=== PATIENT | female | born 1980 | race Hispanic/Latino ===

== ENCOUNTER 2017-04-10 20:12 | Emergency (ER) | payer MEDICAID ==
[2017-04-10 21:09] LABS: APPEARANCE,URINE Clear (CLEAR); BILIRUBIN,URINE Negative (NEGATIVE); COLOR,URINE Yellow (YELLOW); GLUCOSE, URINE (UA) Negative (NEGATIVE); KETONES,URINE Negative (NEGATIVE); LEUKOCYTE ESTERASE ,URINE Trace (NEGATIVE); NITRATE,URINE Negative (NEGATIVE); OCCULT BLOOD,URINE Moderate (NEGATIVE); PH,URINE 5.5 (5.0-8.0); PROTEIN,URINE Negative (NEGATIVE)
[2017-04-10 21:15] LABS: HCG,QUAL RESULT NEGATIVE (NEGATIVE)
[2017-04-10 21:25] LABS: BACTERIA,URINE Rare /HPF (None Seen); MUCUS,URINE Rare LPF (None Seen); SQUAMOUS EPITHELIAL CELL,UR Few /LPF (0-2)
[2017-04-10 21:28] LABS: BASOPHILS % (AUTO) 0.4 % (0.0-5.0); EOSINOPHILS % (AUTO) 2.7 % (0.0-8.0); HEMATOCRIT 38.3 % (36-48); LYMPHOCYTES % (AUTO) 28.6 % (21.0-51.0); MEAN CORPUSCULAR HEMOGLOBIN 30.2 pg (27.0-33.0); MEAN CORPUSCULAR HGB CONC 34.9 g/dL (32.0-36.0); MEAN CORPUSCULAR VOLUME 86.3 fL (79-99); MONOCYTES % (AUTO) 4.9 % (3.0-13.0); NEUTROPHILS % (AUTO) 63.4 % (40.0-77.0); NUCLEATED RED BLOOD CELLS 0.1 % (0.0-0.19); PLATELET COUNT (AUTO) 305 K/uL (130-400); RED BLOOD CELL COUNT(AUTO) 4.44 MIL/uL (4.00-5.50); RED CELL DISTRIBUTION WIDTH 14.1 % (11.0-15.5); WHITE BLOOD COUNT (AUTO) 6.8 K/uL (4.8-10.8)
[2017-04-10 21:42] LABS: INR 0.93 (0.85-1.15); PARTIAL THROMBOPLASTIN TIME 27.1 SEC (26.3-35.5); PROTHROMBIN TIME 9.8 SEC (9.6-11.6)
[2017-04-10] MEDS ORDERED: SUMATRIPTAN SUCCINATE 6 MG/VIAL 1ML SQ ONE (22:15)
[2017-04-11] MEDS ORDERED: KETOROLAC TROMETHAMINE 30MG/ML ONE (00:02)
[2017-04-11] MEDS ORDERED: METOCLOPRAMIDE 10 MG/2 ML VIAL ONE (00:02)
[2017-04-11] MEDS ORDERED: SODIUM CHLORIDE 0.9% 1000ML 1,000 ML IV ONE (00:03)
[2017-04-11] MEDS ORDERED: DiphenhydrAMINE HCL 50 MG/ML VIAL ONE (00:04)
[2017-04-11] MEDS ORDERED: ONDANSETRON HCL 4 MG/2 ML VIAL ONE (00:05)
== END 2017-04-11 01:07 | disposition home or self-care (01) ==
LOC: EDH 20:12
DX: G43.909 Migraine, unspecified, not intractable, without status migrainosus (principal); R20.0 Anesthesia of skin; R53.1 Weakness; F32.9 Major depressive disorder, single episode, unspecified; M79.7 Fibromyalgia; Z98.51 Tubal ligation status
CPT/HCPCS: 36415; 70450; 81001; 81025; 82948 ×2; 85025; 85610; 85730; 93005; 96361; 96372; 96374; 96375; 99285; J1200; J1885; J2405; J2765; J3030; J7030

== ENCOUNTER 2017-12-14 18:49 | Emergency (ER) | payer MEDICAID ==
[2017-12-14] MEDS ORDERED: DEXAMETHASONE SOD PHOSPHATE 10MG/ML 1ML VIAL ONE (19:15)
[2017-12-14] MEDS ORDERED: IPRATROPIUM/ALBUTEROL SULFATE 3 ML SOLUTION IH ONE (19:19)
[2017-12-14 19:35] LABS: RAPID GROUP A STREP NEGATIVE (NEGATIVE)
[2017-12-14] MEDS ORDERED: BENZONATATE 100 MG CAPSULE PO ONE (20:04)
== END 2017-12-14 20:10 | disposition home or self-care (01) ==
LOC: EDH 18:49
DX: J20.9 Acute bronchitis, unspecified (principal); J01.10 Acute frontal sinusitis, unspecified
CPT/HCPCS: 87804 ×2; 87880; 94640; 96372; 99284; J1100

== ENCOUNTER 2018-06-26 10:24 | Emergency (ER) | payer MEDICAID ==
[2018-06-26] MEDS ORDERED: ACETAMINOPHEN EXTRA STRENGTH 500 MG TABLET ONE (10:38)
[2018-06-26] MEDS ORDERED: IPRATROPIUM/ALBUTEROL SULFATE 3 ML SOLUTION IH ONE (10:45)
[2018-06-26 10:59] LABS: APPEARANCE,URINE Clear (CLEAR); BILIRUBIN,URINE Negative (NEGATIVE); COLOR,URINE Yellow (YELLOW); GLUCOSE, URINE (UA) Negative (NEGATIVE); KETONES,URINE Negative (NEGATIVE); LEUKOCYTE ESTERASE ,URINE Trace (NEGATIVE); NITRATE,URINE Negative (NEGATIVE); OCCULT BLOOD,URINE Small (NEGATIVE); PROTEIN,URINE Negative (NEGATIVE); UROBILINOGEN,URINE 0.2 mg/dL (0.2-1.0)
[2018-06-26 11:00] LABS: RAPID GROUP A STREP NEGATIVE (NEGATIVE)
[2018-06-26 11:03] LABS: HCG,QUAL RESULT NEGATIVE (NEGATIVE)
[2018-06-26 11:22] LABS: RBC,URINE 0-1 /HPF (0-1)
[2018-06-26 11:23] LABS: BACTERIA,URINE Rare /HPF (None Seen); WBC,URINE 0-1 /HPF (0-1)
== END 2018-06-26 12:27 | disposition home or self-care (01) ==
LOC: EDH 10:24
DX: J09.X2 Influenza due to identified novel influenza A virus with other respiratory manifestations (principal); F41.9 Anxiety disorder, unspecified; F32.9 Major depressive disorder, single episode, unspecified; J45.909 Unspecified asthma, uncomplicated
CPT/HCPCS: 81001; 81025; 87804; 87880; 94640

== ENCOUNTER 2018-12-02 08:52 | Emergency (ER) | payer MEDICAID ==
[2018-12-02] MEDS ORDERED: DiphenhydrAMINE HCL 50 MG/ML VIAL ONE (09:17)
[2018-12-02] MEDS ORDERED: DEXAMETHASONE SOD PHOSPHATE 10MG/ML 1ML VIAL ONE (09:17)
[2018-12-02] MEDS ORDERED: PROCHLORPERAZINE EDISYLATE 10 MG/2 ML VIAL ONE (09:17)
[2018-12-02] MEDS ORDERED: SODIUM CHLORIDE 0.9% 1000ML 1,000 ML IV ONE (09:18)
[2018-12-02 09:35] LABS: BASOPHILS % (AUTO) 0.8 % (0.0-5.0); HEMATOCRIT 42.1 % (36-48); LYMPHOCYTES % (AUTO) 28.5 % (21.0-51.0); MEAN CORPUSCULAR HEMOGLOBIN 29.9 pg (27.0-33.0); MEAN CORPUSCULAR VOLUME 87.9 fL (79-99); MONOCYTES % (AUTO) 5.6 % (3.0-13.0); NEUTROPHILS % (AUTO) 63.1 % (40.0-77.0); PLATELET COUNT (AUTO) 255 K/uL (130-400); RED BLOOD CELL COUNT(AUTO) 4.79 MIL/uL (4.00-5.50); RED CELL DISTRIBUTION WIDTH 14.8 % (11.0-15.5); WHITE BLOOD COUNT (AUTO) 6.6 K/uL (4.8-10.8)
[2018-12-02 09:42] LABS: CREATININE 0.7 mg/dL (0.5-1.5); POTASSIUM 4.1 mmol/L (3.5-5.1)
[2018-12-02 09:50] LABS: ALBUMIN 3.4 g/dL (3.5-5.0); BILIRUBIN,TOTAL 0.3 mg/dL (0.2-1.0); CARBAMAZEPINE (TEGRETOL) 4.8 mcg/mL (4.0-12.0); TOTAL PROTEIN, SERUM 7.3 g/dL (6.0-8.3)
== END 2018-12-02 12:59 | disposition home or self-care (01) ==
LOC: EDH 08:52
DX: G43.909 Migraine, unspecified, not intractable, without status migrainosus (principal); R11.2 Nausea with vomiting, unspecified; F32.9 Major depressive disorder, single episode, unspecified; J45.909 Unspecified asthma, uncomplicated; F41.9 Anxiety disorder, unspecified
CPT/HCPCS: 36415; 80053; 80156; 85025; 96361; 96374; 96375; 99284; J0780; J1100; J1200; J7030

== ENCOUNTER 2019-02-14 16:04 | Emergency (ER) | payer MEDICAID ==
[2019-02-14] MEDS ORDERED: ALBUTEROL SULFATE 0.083% 2.5 MG/3 ML INH IH ONE (16:56)
[2019-02-14 16:58] LABS: BASOPHILS % (AUTO) 0.7 % (0.0-5.0); EOSINOPHILS % (AUTO) 5.2 % (0.0-8.0); HEMATOCRIT 39.2 % (36-48); LYMPHOCYTES % (AUTO) 37.3 % (21.0-51.0); MEAN CORPUSCULAR HEMOGLOBIN 29.7 pg (27.0-33.0); MEAN CORPUSCULAR HGB CONC 34.3 g/dL (32.0-36.0); MEAN CORPUSCULAR VOLUME 86.7 fL (79-99); MONOCYTES % (AUTO) 8.2 % (3.0-13.0); NEUTROPHILS % (AUTO) 48.6 % (40.0-77.0); PLATELET COUNT (AUTO) 262 K/uL (130-400); RED BLOOD CELL COUNT(AUTO) 4.52 MIL/uL (4.00-5.50); RED CELL DISTRIBUTION WIDTH 14.1 % (11.0-15.5); WHITE BLOOD COUNT (AUTO) 5.7 K/uL (4.8-10.8)
[2019-02-14 17:10] LABS: INR 0.92 (0.85-1.15); PARTIAL THROMBOPLASTIN TIME 25.4 SEC (26.3-35.5); PROTHROMBIN TIME 9.7 SEC (9.6-11.6)
[2019-02-14 17:19] LABS: CREATININE 0.6 mg/dL (0.5-1.5); POTASSIUM 4.9 mmol/L (3.5-5.1)
[2019-02-14 17:25] LABS: ALBUMIN 3.5 g/dL (3.5-5.0); BILIRUBIN,TOTAL 0.3 mg/dL (0.2-1.0); TOTAL PROTEIN, SERUM 6.9 g/dL (6.0-8.3)
[2019-02-14 17:26] LABS: APPEARANCE,URINE Clear (CLEAR); BILIRUBIN,URINE Negative (NEGATIVE); COLOR,URINE Yellow (YELLOW); GLUCOSE, URINE (UA) Negative (NEGATIVE); KETONES,URINE Negative (NEGATIVE); LEUKOCYTE ESTERASE ,URINE Negative (NEGATIVE); NITRATE,URINE Negative (NEGATIVE); OCCULT BLOOD,URINE Negative (NEGATIVE); PH,URINE 7.5 (5.0-8.0); PROTEIN,URINE Negative (NEGATIVE)
[2019-02-14 17:28] LABS: HCG,QUAL RESULT NEGATIVE (NEGATIVE)
[2019-02-14 17:34] LABS: AMPHET/METH SCREEN,URINE NEGATIVE (NEGATIVE); BARBITURATE SCREEN, URINE NEGATIVE (NEGATIVE); BENZODIAZEPINES SCREEN,URINE NEGATIVE (NEGATIVE); CANNABINOID SCREEN,URINE NEGATIVE (NEGATIVE); COCAINE SCREEN,URINE NEGATIVE (NEGATIVE); OPIATE SCREEN,URINE NEGATIVE (NEGATIVE); PHENCYCLIDINE SCREEN,URINE NEGATIVE (NEGATIVE)
[2019-02-14] MEDS ORDERED: METHYLPREDNISOLONE SOD SUCC 125MG/2ML VIAL ONE (17:47)
== END 2019-02-14 18:07 | disposition home or self-care (01) ==
LOC: EDH 16:04
DX: J45.21 Mild intermittent asthma with (acute) exacerbation (principal); F41.9 Anxiety disorder, unspecified; F32.9 Major depressive disorder, single episode, unspecified; Z98.51 Tubal ligation status
CPT/HCPCS: 36415; 71045; 80053; 80305; 81003; 81025; 82550; 84484; 85025; 85610; 85730; 87804 ×2; 93005; 94640; 96374; 99285; J2930

== ENCOUNTER 2020-01-29 18:45 | Emergency (ER) | payer MEDICAID | END 2020-01-29 19:57 | disposition home or self-care (01) | LOC: EDH 18:45 | DX: T81.31XA Disruption of external operation (surgical) wound, not elsewhere classified, initial encounter (principal); J45.909 Unspecified asthma, uncomplicated; F41.9 Anxiety disorder, unspecified; M79.7 Fibromyalgia; Z98.890 Other specified postprocedural states; Z98.84 Bariatric surgery status; Z98.51 Tubal ligation status; Y83.8 Other surgical procedures as the cause of abnormal reaction of the patient, or of later complication, without mention of misadventure at the time of the procedure ==

== ENCOUNTER 2021-04-13 21:11 | Emergency (ER) | payer MEDICAID ==
[~2021-04-13] VITALS: Ht 160 cm; Wt 63.0 kg
[2021-04-13] MEDS ORDERED: DEXAMETHASONE SOD PHOSPHATE 4 MG/ML 1ML VIAL IM ONE (22:00)
[2021-04-13] MEDS ORDERED: BENZ-39 PO (22:13)
[2021-04-13] MEDS ORDERED: FLUT16H NASAL (22:13)
[2021-04-13] MEDS ORDERED: LORA10TA7 PO (22:13)
[2021-04-13 22:19] VITALS: BP 125/73
== END 2021-04-13 22:38 | disposition home or self-care (01) ==
LOC: EDH 21:11
DX: B34.9 Viral infection, unspecified (principal); E78.00 Pure hypercholesterolemia, unspecified; J44.9 Chronic obstructive pulmonary disease, unspecified; K21.9 Gastro-esophageal reflux disease without esophagitis; M19.90 Unspecified osteoarthritis, unspecified site; F41.9 Anxiety disorder, unspecified; G43.909 Migraine, unspecified, not intractable, without status migrainosus
CPT/HCPCS: 81025; 96372; 99283; J1100

== ENCOUNTER 2022-10-24 19:33 | Observation (INO) | payer MEDICAID ==
[~2022-10-24] VITALS: Ht 160 cm; Wt 73.1 kg
[~2022-10-24 19:33] MED LIST: BENZ-39 PO; FLUT16H NASAL; LORA10TA7 PO
[2022-10-24] MEDS ORDERED: ONDANSETRON 4MG INJ ONE (22:05)
[2022-10-24] MEDS ORDERED: 0.9%NACL 1000ML 1,000 ML IV ONE ×2 (22:05→22:30)
[2022-10-24 22:25] LABS: BASOPHILS # (AUTO) 0.02 K/uL (0.00-0.20); BASOPHILS % (AUTO) 0.2 % (0.0-5.0); EOSINOPHILS # (AUTO) 0.03 K/uL (0.00-0.70); EOSINOPHILS % (AUTO) 0.3 % (0.0-8.0); HEMATOCRIT 41.4 % (36-48); IMMATURE GRANULOCYTE ABSOLUTE 0.03 K/uL (0-1); LYMPHOCYTES # (AUTO) 1.2 K/uL (1.0-4.8); LYMPHOCYTES % (AUTO) 12.2 % (21.0-51.0); MEAN CORPUSCULAR HEMOGLOBIN 29.9 pg (27.0-33.0); MEAN CORPUSCULAR HGB CONC 34.5 g/dL (32.0-36.0); MEAN CORPUSCULAR VOLUME 86.6 fL (79-99); MONOCYTES # (AUTO) 0.5 K/uL (0.1-1.0); MONOCYTES % (AUTO) 5.5 % (3.0-13.0); NEUTROPHILS # (AUTO) 7.7 K/uL (1.8-7.7); NEUTROPHILS % (AUTO) 81.5 % (40.0-77.0); PLATELET COUNT (AUTO) 265 K/uL (130-400); RED BLOOD CELL COUNT(AUTO) 4.78 MIL/uL (4.00-5.50); RED CELL DISTRIBUTION WIDTH 11.9 % (11.0-15.5); WHITE BLOOD COUNT (AUTO) 9.5 K/uL (4.8-10.8)
[2022-10-24] MEDS ORDERED: MORPHINE 4 MG SYG IVP ONE (22:30)
[2022-10-24] MEDS ORDERED: ONDANSETRON 4MG INJ IVP ONE (22:30)
[2022-10-24 22:39] LABS: APPEARANCE,URINE CLEAR (CLEAR); BILIRUBIN,URINE 0.5 mg/dL (NEGATIVE); COLOR,URINE YELLOW (YELLOW); GLUCOSE, URINE (UA) NEGATIVE (NEGATIVE); KETONES,URINE 5 mg/dL (NEGATIVE); LEUKOCYTE ESTERASE ,URINE 25 Leu/uL (NEGATIVE); NITRATE,URINE NEGATIVE (NEGATIVE); PH,URINE 5.5 (5.0-8.0); PROTEIN,URINE 30 mg/dL (NEGATIVE)
[2022-10-24 22:43] LABS: CREATININE 0.8 mg/dL (0.5-1.5); POTASSIUM 3.7 mmol/L (3.5-5.1)
[2022-10-24 22:46] LABS: ADD UA MICROSCOPIC YES
[2022-10-24 22:47] LABS: BACTERIA,URINE RARE /HPF (None Seen); BILIRUBIN,TOTAL 0.9 mg/dL (0.2-1.0); MUCUS,URINE MOD LPF (None Seen); SQUAMOUS EPITHELIAL CELL,UR RARE /HPF (0-2); TOTAL PROTEIN, SERUM 7.4 g/dL (6.0-8.3)
[2022-10-25] MEDS ORDERED: ACETAMINOPHEN 325 MG TAB PO PRN ×2 (00:30)
[2022-10-25] MEDS ORDERED: POTASSIUM CHLORIDE 20MEQ/100ML 100 ML IV PRN (00:30)
[2022-10-25] MEDS ORDERED: MORPHINE 4 MG SYG IV PRN (00:30)
[2022-10-25] MEDS: LACTATED RINGERS 1000ML 1,000 ML IV SCH ×2 (03:00→13:50)
[2022-10-25 03:28] LABS: SARS-CoV-2, RNA, NAAT NEGATIVE SARS CoV-2 (NEGATIVE)
[2022-10-25 06:38] LABS: BASOPHILS # (AUTO) 0.01 K/uL (0.00-0.20); BASOPHILS % (AUTO) 0.2 % (0.0-5.0); EOSINOPHILS # (AUTO) 0.07 K/uL (0.00-0.70); EOSINOPHILS % (AUTO) 1.5 % (0.0-8.0); HEMATOCRIT 38.1 % (36-48); IMMATURE GRANULOCYTE ABSOLUTE 0.02 K/uL (0-1); LYMPHOCYTES # (AUTO) 1.3 K/uL (1.0-4.8); LYMPHOCYTES % (AUTO) 26.5 % (21.0-51.0); MEAN CORPUSCULAR HEMOGLOBIN 29.7 pg (27.0-33.0); MEAN CORPUSCULAR HGB CONC 34.1 g/dL (32.0-36.0); MEAN CORPUSCULAR VOLUME 87.2 fL (79-99); MONOCYTES # (AUTO) 0.4 K/uL (0.1-1.0); MONOCYTES % (AUTO) 7.6 % (3.0-13.0); NEUTROPHILS % (AUTO) 63.8 % (40.0-77.0); PLATELET COUNT (AUTO) 246 K/uL (130-400); RED BLOOD CELL COUNT(AUTO) 4.37 MIL/uL (4.00-5.50); WHITE BLOOD COUNT (AUTO) 4.8 K/uL (4.8-10.8)
[2022-10-25 06:47] LABS: INR 0.94 (0.85-1.15); PROTHROMBIN TIME 10.9 SEC (9.6-11.6)
[2022-10-25 06:48] LABS: PARTIAL THROMBOPLASTIN TIME 27.5 SEC (26.3-35.5)
[2022-10-25 06:54] LABS: CREATININE 0.6 mg/dL (0.5-1.5); MAGNESIUM 1.7 mg/dL (1.80-2.40); POTASSIUM 3.7 mmol/L (3.5-5.1)
[2022-10-25 08:40] VITALS: BP 118/73; PULSE 52; RESP 18
[2022-10-25] MEDS: MAGNESIUM 2GM PREMIX 50ML 50 ML IV PRN (10:41)
[2022-10-25] MEDS: FAMOTIDINE 20MG VIAL IV SCH ×2 (10:41→20:35)
[2022-10-25 11:41] VITALS: BP 130/62; PULSE 53; RESP 16
[2022-10-25] MEDS ORDERED: GADOTERATE MEGLUMINE 10 MMOL/20 ML VIAL IV ONE (14:16)
[2022-10-25 16:00] VITALS: BP 115/77; PULSE 59; RESP 16
[2022-10-25 19:00] VITALS: BP 134/68; PULSE 63; RESP 16
[2022-10-25 20:35] VITALS: O2SAT 100
[2022-10-25] MEDS: ZOSYN 3.375GM +NS 50ML IVPB SCH (20:35)
[2022-10-25] MEDS ORDERED: IOHEXOL-350 75 ML VIAL IV ONE (20:39)
[2022-10-25 23:00] VITALS: BP 112/61; PULSE 48; RESP 16
[2022-10-26] VITALS (26 sets, daily range): BP systolic 94–142; BP diastolic 61–73; PULSE 54–68; RESP 12–20; O2SAT 95–97
[2022-10-26] MEDS: MORPHINE 2 MG SYG IV PRN (00:41)
[2022-10-26] MEDS: LACTATED RINGERS 1000ML 1,000 ML IV SCH (01:33)
[2022-10-26] MEDS: ZOSYN 3.375GM +NS 50ML IVPB SCH ×3 (03:15→20:11)
[2022-10-26 05:28] LABS: BASOPHILS # (AUTO) 0.02 K/uL (0.00-0.20); BASOPHILS % (AUTO) 0.5 % (0.0-5.0); EOSINOPHILS % (AUTO) 4.5 % (0.0-8.0); HEMATOCRIT 35.6 % (36-48); IMMATURE GRANULOCYTE ABSOLUTE 0.01 K/uL (0-1); LYMPHOCYTES # (AUTO) 1.9 K/uL (1.0-4.8); LYMPHOCYTES % (AUTO) 43.3 % (21.0-51.0); MEAN CORPUSCULAR HGB CONC 34.3 g/dL (32.0-36.0); MEAN CORPUSCULAR VOLUME 87.5 fL (79-99); MONOCYTES # (AUTO) 0.3 K/uL (0.1-1.0); NEUTROPHILS % (AUTO) 44.5 % (40.0-77.0); PLATELET COUNT (AUTO) 230 K/uL (130-400); RED BLOOD CELL COUNT(AUTO) 4.07 MIL/uL (4.00-5.50); WHITE BLOOD COUNT (AUTO) 4.4 K/uL (4.8-10.8)
[2022-10-26 06:26] LABS: ALANINE AMINOTRANSFERASE 138 U/L (12-78); AMYLASE 35 U/L (25-115); ASPARTATE AMINOTRANSFERASE 112 U/L (10-37); BILIRUBIN,DIRECT 0.2 mg/dL (0.0-0.3); BILIRUBIN,TOTAL 0.8 mg/dL (0.2-1.0); CARBON DIOXIDE 30 mmol/L (21-32); CHLORIDE 103 mmol/L (101-111); CREATININE 0.7 mg/dL (0.5-1.5); GLOMERULAR FILTR. RATE CALC 109 mL/min (>90); GLUCOSE,RANDOM 74 mg/dL (70-105); POTASSIUM 3.4 mmol/L (3.5-5.1); SODIUM SERUM 140 mmol/L (136-145); TOTAL PROTEIN, SERUM 5.7 g/dL (6.0-8.3); UREA NITROGEN, BLOOD 6 mg/dL (7-18)
[2022-10-26 06:27] LABS: LIPASE < 50 U/L (114-286)
[2022-10-26] MEDS ORDERED: POTASSIUM CHLORIDE 20 MEQ/100 ML BAG IV SCH (08:30)
[2022-10-26] MEDS ORDERED: MAGNESIUM 2GM PREMIX 50ML 50 ML IV SCH ×2 (08:30)
[2022-10-26] MEDS: FAMOTIDINE 20MG VIAL IV SCH ×2 (10:52→20:11)
[2022-10-26] MEDS: ONDANSETRON 4MG INJ IV PRN ×2 (11:44→16:31)
[2022-10-26] MEDS ORDERED: BUPIVACAINE/PF 0.25% 30ML VIAL IJ ONE ×2 (12:33→15:02)
[2022-10-26] MEDS ORDERED: MIDAZOLAM HCL 1 MG/ML 2ML VIAL ONE (13:19)
[2022-10-26] MEDS ORDERED: DEXAMETHASONE SOD PHOSPHATE 10MG/ML 1ML VIAL ONE (13:19)
[2022-10-26] MEDS ORDERED: LIDOCAINE PF 100MG/5ML (2%) SYRINGE 5ML ONE (13:19)
[2022-10-26] MEDS ORDERED: ONDANSETRON 4MG INJ ONE (13:19)
[2022-10-26] MEDS ORDERED: PROPOFOL 10 MG/ML 20ML VIAL IV ONE (13:19)
[2022-10-26] MEDS ORDERED: SUCCINYLCHOLINE CHLORIDE 20 MG/ML 10 ML VIAL ONE (13:19)
[2022-10-26] MEDS ORDERED: ROCURONIUM 10MG/1ML SYR 10 MG/ML ML ONE (13:19)
[2022-10-26] MEDS ORDERED: FENTANYL CITRATE PF 50 MCG/1 ML 2ML VIAL ONE ×2 (13:20→15:37)
[2022-10-26] MEDS ORDERED: PHENYLEPHRINE HCL 10 MG/ML 1ML VIAL IV ONE (14:44)
[2022-10-26] MEDS ORDERED: CEFAZOLIN SODIUM 1 GM VIAL ONE (15:00)
[2022-10-26] MEDS ORDERED: LIDOCAINE 2%-EPI 1:200,000 20 ML VIAL IJ ONE (15:01)
[2022-10-26] MEDS ORDERED: GLYCOPYRROLATE 1 MG/5 ML SYRINGE ONE (15:04)
[2022-10-26] MEDS ORDERED: CEFAZOLIN SODIUM 1 GM VIAL IVPB ONE (15:09)
[2022-10-26] MEDS ORDERED: NEOSTIGMINE 5MG/5ML SYR IV ONE (15:38)
[2022-10-26] MEDS ORDERED: KETOROLAC 30MG VIAL (30MG/ML) ONE (15:38)
[2022-10-26] MEDS ORDERED: MEPERIDINE-PF 25 MG/ML SYG ONE ×2 (16:19→16:47)
[2022-10-26] MEDS: MAGNESIUM 2GM PREMIX 50ML 50 ML IV PRN (17:25)
[2022-10-26] MEDS ORDERED: HYDROMORPHONE 1 MG INJ IVP PRN (17:30)
[2022-10-27] VITALS (7 sets, daily range): BP systolic 84–121; BP diastolic 52–78; PULSE 55–82; RESP 18–20; O2SAT 99–100
[2022-10-27] MEDS: MORPHINE 2 MG SYG IV PRN (02:53)
[2022-10-27] MEDS: ZOSYN 3.375GM +NS 50ML IVPB SCH ×3 (04:26→20:55)
[2022-10-27 06:16] LABS: HEMATOCRIT 33.4 % (36-48); MEAN CORPUSCULAR HEMOGLOBIN 30.1 pg (27.0-33.0); MEAN CORPUSCULAR HGB CONC 34.4 g/dL (32.0-36.0); MEAN CORPUSCULAR VOLUME 87.4 fL (79-99); RED BLOOD CELL COUNT(AUTO) 3.82 MIL/uL (4.00-5.50); RED CELL DISTRIBUTION WIDTH 11.8 % (11.0-15.5); WHITE BLOOD COUNT (AUTO) 6.6 K/uL (4.8-10.8)
[2022-10-27 06:31] LABS: ALBUMIN 3.2 g/dL (3.5-5.0); BILIRUBIN,DIRECT 0.2 mg/dL (0.0-0.3); BILIRUBIN,TOTAL 0.8 mg/dL (0.2-1.0); MAGNESIUM 1.8 mg/dL (1.80-2.40); POTASSIUM 4.1 mmol/L (3.5-5.1); TOTAL PROTEIN, SERUM 6.1 g/dL (6.0-8.3)
[2022-10-27 06:57] LABS: CREATININE 0.7 mg/dL (0.5-1.5)
[2022-10-27] MEDS: OXYCODONE/ACETAMIN 5/325MG TAB PO PRN ×3 (08:09→21:43)
[2022-10-27] MEDS: FAMOTIDINE 20MG VIAL IV SCH ×2 (08:09→20:55)
[2022-10-27] MEDS: MAGNESIUM 2GM PREMIX 50ML 50 ML IV SCH (08:21)
[2022-10-27] MEDS ORDERED: KETOROLAC 15MG/ML VIAL (15MG/ML) IV PRN (15:30)
[2022-10-27] MEDS ORDERED: BISACODYL 10 MG SUPP.RECT RC PRN (15:30)
[2022-10-28 03:20] VITALS: BP 120/64; PULSE 55; RESP 18
[2022-10-28] MEDS: ZOSYN 3.375GM +NS 50ML IVPB SCH (04:47)
[2022-10-28 06:33] LABS: BILIRUBIN,DIRECT 0.2 mg/dL (0.0-0.3); BILIRUBIN,TOTAL 0.6 mg/dL (0.2-1.0); CREATININE 0.7 mg/dL (0.5-1.5); MAGNESIUM 1.7 mg/dL (1.80-2.40); POTASSIUM 3.7 mmol/L (3.5-5.1); TOTAL PROTEIN, SERUM 5.9 g/dL (6.0-8.3)
[2022-10-28] MEDS: ONDANSETRON 4MG INJ IV PRN (06:35)
[2022-10-28 06:50] VITALS: BP 132/60; PULSE 63; RESP 20
[2022-10-28] MEDS: MAGNESIUM 2GM PREMIX 50ML 50 ML IV SCH (06:52)
[2022-10-28] MEDS: OXYCODONE/ACETAMIN 5/325MG TAB PO PRN (07:52)
[2022-10-28 08:30] VITALS: O2SAT 98
[2022-10-28] MEDS ORDERED: AMOX1TAB16 PO (08:35)
[2022-10-28] MEDS: FAMOTIDINE 20MG VIAL IV SCH (08:58)
[2022-10-28 11:20] VITALS: BP 112/77; PULSE 81; RESP 20
== END 2022-10-28 13:20 | disposition home or self-care (01) ==
LOC: EDH 19:33 → INTOOBSV 19:34 → EDHIP 19:34 → 3AH 10-25 08:30 → WSH 10-26 11:10
PROVIDERS: ADMIT Internal Medicine; ATTEND Internal Medicine
DX: K80.00 Calculus of gallbladder with acute cholecystitis without obstruction (principal); Z20.822 Contact with and (suspected) exposure to COVID-19; R74.01 Elevation of levels of liver transaminase levels; R79.89 Other specified abnormal findings of blood chemistry; K83.8 Other specified diseases of biliary tract; K82.9 Disease of gallbladder, unspecified; K29.70 Gastritis, unspecified, without bleeding; K82.8 Other specified diseases of gallbladder; M79.7 Fibromyalgia; Q33.3 Agenesis of lung; Z51.5 Encounter for palliative care; Z79.899 Other long term (current) drug therapy; Z98.890 Other specified postprocedural states
CPT/HCPCS: 96361 ×3; 96375 ×3; 99285; 84484; 80053; 83690 ×2; 85025 ×3; 87077; 87088; 87186; 83605; 81001; 81025; 36415 ×5; 76705; 93005; 96376 ×4; 96365; 96366 ×5; 96367; 83735 ×4; 84100; 80048 ×4; 85610; 85730; 86850; 86900; 86901; 82948; 87635; 74177; 74183; 47562; 82150; 80076 ×3; 85027; J7030 ×2; J2405 ×5; J2270 ×4; J3475 ×4; J7120; S0028 ×7; J2543 ×8; Q9967; A9575; A4600 ×2; A4510; G0378 ×44; J3010 ×2; J0690 ×2; J1170; J3490 ×6; J1100; J2710; J0330; J2250; J3480; J1885 ×2; J2175 ×2; J2371; C1769 ×3; A4649 ×5; A4930 ×2; A4223 ×2; A4222; A4216; J2001; J2704; S8037